=== PATIENT | male | born 1980 | race Caucasian/White ===

== ENCOUNTER 2016-05-17 20:46 | Emergency (ER) | payer SELFPAY ==
[2016-05-17 20:57] VITALS: BP 151/82
[2016-05-17] MEDS ORDERED: Ketorolac INJ* 60 MG/2 ML VIAL IM ONE (21:12)
[2016-05-17] MEDS ORDERED: Ondansetron ODT TAB* 4 MG PO ONE (21:13)
--- NOTE | 2016-05-17 21:52 | RAD ---
HISTORY: Right knee injury, trauma COMPARISONS: None VIEWS: 4, Frontal, lateral, axial, and oblique views of the right knee FINDINGS: BONE DENSITY: Normal. BONES: There is no displaced fracture. JOINTS: There is no arthropathy. ALIGNMENT: There is no dislocation. SOFT TISSUES: Unremarkable. OTHER FINDINGS: None. IMPRESSION: NO ACUTE OSSEOUS INJURY. IF SYMPTOMS PERSIST, RECOMMEND REPEAT IMAGING.
--- NOTE | 2016-05-17 21:56 | UC ---
Knee Pain HPI - HPI Summary HPI Summary: 35 male presents complaining of right knee pain that began after an injury at work around 15:25 today 05/17/16. Patient states he was in the kitchen carrying and cleaning up dishes when he turned around and hit his knee up into a steel metal bowl. Patient states it hit right above his right knee cap and to the lateral side. He has been in excruciating pain since and unable to move his knee at all without pain. Describes it as throbbing and feeling dislocated. He has become nauseous over the pain. He has not taken any medication [employer]FORMATION [employer]. Admits to swelling and bruising. Denies numbness/tingling and loss of circulation. Admits to radiation of pain above and below the knee but denies hip or ankle pain. Tender upon palpation. Describes pain to be throbbing stiff and sharp upon movement. Says it feels warm to touch. No penetrating trauma. was able to walk and bear weight after it happened however 2 hours after injury pain increased and became more stiff and he was unable to. - History of Current Complaint Chief Complaint: UCLowerExtremity Stated Complaint: KNEE INJURY Time Seen by Provider: 05/17/16 21:07 Hx Obtained From: Patient Onset/Duration: Sudden Onset Severity Initially: Moderate Severity Currently: Severe Pain Intensity: 9 Pain Scale Used: 0-10 Numeric Character: Sharp, Aching, Throbbing, Stiffness Aggravating Factor(s): Movement, Weight Bearing Alleviating Factor(s): Position Associated Signs And Symptoms: Positive: Swelling, Redness, Bruising - Allergies/Home Medications Allergies/Adverse Reactions: Allergies Allergy/AdvReac Type Severity Reaction Status Date / Time anesthesia gas Allergy See Comment Uncoded 05/17/16 20:58 PMH/Surg Hx/FS Hx/Imm Hx Cardiovascular History Of: Reports: Hypertension - Surgical History Surgical History: None - Family History Known Family History: Positive: Unknown - Social History Alcohol Use: None Substance Use Type: None Smoking Status (MU): Light Every Day Tobacco Smoker Amount Used/How Often: a pack per week, trying to quit Review of Systems Constitutional: Negative Skin: Bruising - of right knee, Other - edema of right knee Eyes: Negative ENT: Negative Respiratory: Negative Cardiovascular: Negative Gastrointestinal: Negative Genitourinary: Negative Motor: Decreased ROM - right knee Neurovascular: Negative Musculoskeletal: Arthralgia, Decreased ROM, Edema, Myalgia - right knee Neurological: Negative Psychological: Negative All Other Systems Reviewed And Are Negative: Yes Physical Exam Triage Information Reviewed: Yes Appearance: Well-Appearing, Well-Nourished, Pain Distress - appeared to be in mild pain distress, stating he is nauseous from the pain and feels loopy Vital Signs: Initial Vital Signs Temp 97.3 F 05/17/16 20:54 Pulse 97 05/17/16 20:54 Resp 18 05/17/16 20:54 BP 151/82 05/17/16 20:54 Pulse Ox 99 05/17/16 20:54 elevated pressure, slight tachycardia patient however is in pain Vital Signs Reviewed: Yes Eyes: Positive: Conjunctiva Clear ENT Exam: Normal Dental Exam: Normal Neck: Positive: Supple, Nontender, No Lymphadenopathy Respiratory Exam: Normal Respiratory: Positive: Chest non-tender, Lungs clear, Normal breath sounds, No respiratory distress Cardiovascular: Positive: RRR, No Murmur, Pulses Normal - pedal 2+ bilaterally, Brisk Capillary Refill - < 2seconds Abdominal Exam: Normal Musculoskeletal: Positive: Strength Limited @ - right knee. left knee normal 5/ 5., ROM Limited @ - unable to be assessed due to pain with flexion and extension. unable to bear weight and walk. after dose of toradol patient is able to flex and extend however with pain. able to bear weight with pain., Edema @ - right knee, Other: - able to move toes and ankles bilaterally. no tenderness on palpation of tibia/fibula and femur. No obvious deformity crepitus or step off noted. very tender on palpation of platella, proximal knee and posterior/lateral knee. warm to touch. skin intact. no lcaerations or abrasions noted. Neurological Exam: Normal Psychological Exam: Normal Skin: Positive: Other - erythema, edema, ecchymosis and warmth of right knee Diagnostics - Radiology x-ray right knee Xray Interpretation: No Acute Changes - NO ACUTE OSSEOUS INJURY. IF SYMPTOMS PERSIST, RECOMMEND REPEAT IMAGING. Radiology Interpretation Completed By: Radiologist Re-Evaluation - Re-Evaluation First Eval Re-Evaluation Time: 21:15 Change: Improved - felt much better after zofran and toradol. also knowing his knee was not fractured or dislocated. Knee Pain Course/Dx - Course Course Of Treatment: patient was given toradol and zofran for pain and nausea. right knee x-ray was obtained and negative. patient will be referred to orthopedics and given pain management and knee immobilzer/crutches to take home in the mean time. aware of worsening symptoms (increasing pain, swelling, warmth , fever, chills, numbness/tingling, loss of sensation/circulation) to return to or seek medical attention immediately. - Differential Dx/Diagnosis Differential Diagnosis/HQI/PQRI: Contusion, Fracture (Open), Sprain, Strain Provider Diagnoses: right knee contusion Discharge - Discharge Plan Condition: Stable Disposition: HOME Prescriptions: Ibuprofen TAB* [Motrin TAB* 600 MG] 600 mg PO Q6H PRN #20 tab PRN Reason: Pain Patient Education Materials: Knee Pain (ED), Contusion in Adults (ED) Forms: *Work Release Referrals: Bess Mendez MD [Primary Care Provider] - Mariana Torres MD [Medical Doctor] - Additional Instructions: Take medication as prescribed for the next 5-7 days as needed. Take with food to prevent upset stomach. Ice the knee multiple times a day throughout the day. Elevate and rest. Use immobilizer and crutches as needed for walking. If symptoms do not improve or worsen such as (increasing pain, swelling, bruising, numbness/tingling, loss of sensation/circulation) please seek medical attention promptly. Follow up with primary care doctor or orthopedics for further evaluation if your symptoms do not improve.
== END 2016-05-17 22:29 | disposition home or self-care (01) ==
LOC: UCEAST 20:46
DX: S80.01XA Contusion of right knee, initial encounter (principal); W22.8XXA Striking against or struck by other objects, initial encounter; Y93.89 Activity, other specified; Y92.511 Restaurant or cafe as the place of occurrence of the external cause; Y99.0 Civilian activity done for income or pay; F17.210 Nicotine dependence, cigarettes, uncomplicated
CPT/HCPCS: 96372; 99214; A9270-GY; G0463; J1885

== ENCOUNTER 2019-01-04 19:26 | Emergency (ER) | payer OTHER ==
--- NOTE | 2019-01-04 19:30 | ED ---
Allergic Reaction/Systemic - HPI Summary HPI Summary: 38 yo male presents to [facility] via EMS with possible allergic reaction. Pt tells me that around 1600 he was working outside and a bug was on his right arm - he swatted the bug away. He noticed a small red spot where the bug was and thinks it either bit or stung him. Unsure what type of insect it was. Within the next few minutes he started to noticed some hives to his right arm and left arm. He took 100mg benadryl and hives subsided. Around 1545 he started to notice some chest tightness, dizziness, and felt like he was having difficulty breathing. He has a history of environmental allergies as well as insect allergies with anaphylaxis, thus has an epipen. He used his epipen for these symptoms, but he accidentally injected his thumb. A coworker called EMS. Within 5 minutes had relief of his symptoms. Since en route to ED pt has been asymptomatic and in no distress. He currently denies any symptoms, headache, dizziness, chest pain, SOB , difficulty breathing, hives, or swelling. He appears frustrated and is asking to be discharged. - History of Current Complaint Time Seen by Provider: 01/04/19 19:30 Hx Obtained From: Patient Severity Initially: Moderate Severity Currently: None - Allergies/Home Medications Allergies/Adverse Reactions: Allergies Allergy/AdvReac Type Severity Reaction Status Date / Time bee venom protein (honey bee) Allergy Anaphylatic Verified 01/04/19 19:41 Shock anesthesia gas Allergy See Comment Uncoded 05/17/16 20:58 PMH/Surg Hx/FS Hx/Imm Hx Endocrine/Hematology History: Denies: Hx Diabetes Cardiovascular History: Reports: Hx Hypertension Respiratory History: Denies: Hx Asthma, Hx Chronic Obstructive Pulmonary Disease (COPD), Hx Pneumonia, Hx Pulmonary Edema Neurological History: Denies: Hx CVA, Hx Headaches, Hx Migraine Psychiatric History: Denies: Hx Anxiety, Hx Depression - Surgical History Surgical History: None - Immunization History Immunizations Up to Date: Yes - Family History Known Family History: Positive: Unknown - Social History Occupation: Employed Full-time Lives: With Family Alcohol Use: Occasionally Substance Use Type: Reports: None Smoking Status (MU): Light Every Day Tobacco Smoker Amount Used/How Often: a pack per week, trying to quit Review of Systems Constitutional: Negative Eyes: Negative ENT: Negative Cardiovascular: Negative Respiratory: Negative Gastrointestinal: Negative Genitourinary: Negative Musculoskeletal: Negative Skin: Other - Insect bite/sting right arm Neurological: Negative Psychological: Normal All Other Systems Reviewed And Are Negative: No Physical Exam - Summary Physical Exam Summary: GENERAL: NAD. WDWN. No distress. SKIN: No uriticaria, erythema, open wounds, streaking, or edema. HEENT: No periorbital, lip, or other facial edema. Airway patent without oropharyngeal edema. NECK: Supple. Nontender. No lymphadenopathy. CHEST: CTAB. No wheezing. No accessory muscle use. Breathing comfortably and in no distress. CV: RRR. Pulses intact. Cap refill <2seconds NEURO: Alert. PSYCH: Age appropriate behavior. Triage Information Reviewed: Yes Vital Signs On Initial Exam: Vital Signs: Temp Pulse Resp BP Pulse Ox 98.4 F 88 18 138/96 97 01/04/19 20:23 01/04/19 20:23 01/04/19 20:23 01/04/19 20:23 01/04/19 20:23 Vital Signs Reviewed: Yes Allergic Reaction Course/Dx - Course Course Of Treatment: He is currently asymptomatic and is asking to be discharged. I had a discussion with the pt that he has a history of anaphylaxis to insect stings and, although he is asymptomatic now, his symptoms could return if the epipen/benadryl wear off. I recommended he be monitored in the ED for at least the next hour (as it has already been 1 hour since his epipen use) . He did not want to do this and is asking to be discharged. He signed out AMA. I will send in a prescription for prednisone and have him continue daily benadryl. Also refill his epipen. - Diagnoses Provider Diagnoses: Allergic reaction Discharge ED - Sign-Out/Discharge Documenting (check all that apply): Patient Departure Patient Received Moderate/Deep Sedation with Procedure: No - Discharge Plan Condition: Stable Disposition: AGAINST MEDICAL ADVICE Prescriptions: EPINEPHrine [Epipen] 0.3 mg INJ SEE INSTRUCTIONS #1 gloria predniSONE TAB* [Deltasone 20 MG TAB*] 20 mg PO DAILY #15 tab Patient Education Materials: General Allergic Reaction (ED) Referrals: Bess Mendez MD [Primary Care Provider] - Additional Instructions: - Take prednisone exactly as prescribed until gone - starting tomorrow - Okay to take Benadryl 25mg every 6 hours as needed for itching and hives. This medication may cause drowsiness - do NOT drive, operate machinery or drink alcohol while taking Benadryl -Avoid getting over-heated (hot showers, hot tubs, exercise) for at least 48 hours - Try to avoid aspirin, NSAIDs (Motrin, Aleve, Naprosyn) for 2-3 days - Okay to apply cool compresses to the area of injury - Fill your prescription for the epi pen - keep with you and use if you develop an reaction that causes difficulty breathing, facial or mouth swallowing, or any other concerns - call 911 if you use your epi pen -Contact your doctor or return here with questions or concerns - Billing Disposition and Condition Condition: STABLE Disposition: Against Medical Advice - Attestation Statements Provider Attestation: I was available for consultation for this patient. I did not evaluate the patient or participate in any medical decision making or disposition decisions unless I am specifically named in the chart as having consulted on the patient. If I have consulted on the patient, please see my own ED note on the patient encounter. Valeriano Ugarte MD
[2019-01-04] MEDS ORDERED: Famotidine IV* 10 MG/ML 2 ML (20 mg) IV SLOW PU ONE (19:31)
[2019-01-04] MEDS ORDERED: NS 0.9% 1000 ML** 1,000 ML IV ONE (19:32)
[2019-01-04] MEDS ORDERED: predniSONE TAB* 20 MG PO ONE (20:03)
[2019-01-04 20:24] VITALS: BP 138/96
== END 2019-01-04 20:23 | disposition left against medical advice (07) ==
LOC: ED 19:26
DX: T78.40XA Allergy, unspecified, initial encounter (principal); X58.XXXA Exposure to other specified factors, initial encounter; I10 Essential (primary) hypertension; F17.200 Nicotine dependence, unspecified, uncomplicated; Z88.4 Allergy status to anesthetic agent
CPT/HCPCS: 96374; 99283; J7512